=== PATIENT | female | born 1995 | race Asian ===

== ENCOUNTER 2017-04-24 09:58 | Outpatient (CLI) | payer OTHER ==
--- NOTE | 2017-04-24 10:23 | RAD ---
FOUR VIEWS RIGHT KNEE: Date: 04-24-17 Comparison: None. History: Patellofemoral disorders of right knee, two month history of right knee pain. FINDINGS: No fracture or dislocation. No knee joint effusion. IMPRESSION: No acute findings. POS: MAC
== END 2017-04-24 09:59 | disposition home or self-care (01) ==
LOC: SCSRAD 09:58
PROVIDERS: ATTEND Family Medicine
DX: M22.2X1 Patellofemoral disorders, right knee (principal)